=== PATIENT | female | born 1950 | race Caucasian/White ===

== ENCOUNTER 2016-06-12 19:27 | Emergency (ER) | payer OTHER ==
[2016-06-12 19:32] VITALS: BP 150/72; PULSE 100; RESP 16; TEMP 98.4; O2SAT 98
--- NOTE | 2016-06-12 20:36 | C.PDOC ---
History Of Present Illness 65 year old patient presents to the ED complaining of left shoulder and bilateral knee pain after a fall earlier today. Patient states she slipped and fell in a waxed hallway onto her knees and left shoulder. She continued to work , but the pain persisted. Patient denies fever, numbness, weakness, loss of consciousness, or neck pain. Time Seen by Provider: 06/12/16 19:43 Chief Complaint (Nursing): Lower Extremity Problem/Injury History Per: Patient History/Exam Limitations: no limitations Onset/Duration Of Symptoms: Hrs (earlier today) Current Symptoms Are (Timing): Still Present Severity: Mild Pain Scale Rating Of: 3 Recent travel outside of the [place]: No - Knee Description Of Injury: Fell Currently Unable To: Bear Weight, Bend Or Move Past Medical History Reviewed: Historical Data, Nursing Documentation, Vital Signs Vital Signs: Last Vital Signs Temp 98.4 F 06/12/16 19:29 Pulse 100 H 06/12/16 19:29 Resp 16 06/12/16 19:29 BP 150/72 06/12/16 19:29 Pulse Ox 98 06/12/16 21:49 Family History: States: Unknown Family Hx - Social History Hx Alcohol Use: No Hx Substance Use: No - Immunization History Hx Tetanus Toxoid Vaccination: No Hx Influenza Vaccination: No Hx Pneumococcal Vaccination: No Review Of Systems Except As Marked, All Systems Reviewed And Found Negative. Constitutional: Negative for: Fever Musculoskeletal: Positive for: Shoulder Pain (left), Other (both knees). Negative for: Neck Pain Skin: Positive for: Bruising (bilateral knees) Neurological: Negative for: Weakness, Numbness, Other (loss of consciousness) Physical Exam - Physical Exam Appears: Non-toxic, No Acute Distress Skin: Warm, Dry Head: Atraumatic, Normacephalic Eye(s): bilateral: Normal Inspection, EOMI Nose: Normal Oral Mucosa: Moist Neck: Normal ROM, Supple Chest: Symmetrical Respiratory: No Accessory Muscle Use Back: Normal Inspection Extremity: Normal ROM, No Calf Tenderness, Capillary Refill (<2 seconds), No Deformity, Other (ecchymosis and tenderness to the anterior aspect of the knees (-)swelling; tenderness to the lateral aspect of the shoulder (-)ecchymosis; (+) full ROM (+)5/5 strength (+)normal pulses (+)<2 seconds capillary refill) Pulses: Left Dorsalis Pedis: Normal, Right Dorsalis Pedis: Normal Neurological/Psych: Oriented x3, Normal Speech, Normal Cognition, Normal Motor, Normal Sensation Gait: Steady ED Course And Treatment O2 Sat by Pulse Oximetry: 98 (RA) Pulse Ox Interpretation: Normal - Other Rad left shoulder X-Ray: Interpreted by Me, Viewed By Me Interpretation: no fracture or dislocation bilateral knees X-Ray: Interpreted by Me, Viewed By Me Interpretation: no fracture or dislocation Progress Note: Plan: -bilateral knee x-ray. -left shoulder x-ray. -reassess and disposition. X-ray results were reviewed. Patient was offered a knee brace and pain medications, but she refused both. Ton wrap was given. On reassessment , patient is resting comfortably, and is in no acute distress. Patient was instructed to follow up with physician/clinic in 2-5 days for further evaluation. Disposition - Disposition Disposition: HOME/ ROUTINE Disposition Time: 20:34 Condition: STABLE Additional Instructions: Rest, ice and elevate. Follow up with your primary medical doctor or clinic in 2 -5 days for further evaluation. Return to the emergency department at any time if symptoms persist or worsen. Instructions: Contusion in Adults (ED) - Clinical Impression Clinical Impression: Knee contusion, Left shoulder strain - PA / PAD HAND / Resident Statement MD/DO has reviewed & agrees with the documentation as recorded. - Scribe Statement The provider has reviewed the documentation as recorded by the Scribe Aurora Duque All medical record entries made by the Scribe were at my direction and personally dictated by me. I have reviewed the chart and agree that the record accurately reflects my personal performance of the history, physical exam, medical decision making, and the department course for this patient. I have also personally directed, reviewed, and agree with the discharge instructions and disposition.
--- NOTE | 2016-06-13 09:08 | RAD ---
PROCEDURE: Radiographs of the Left Shoulder HISTORY: Trauma COMPARISON: No prior. FINDINGS: BONES: There is diffuse bone demineralization. There is no acute fracture or bone destruction JOINTS: Normal. Glenohumeral and acromioclavicular joints preserved. No osteoarthritis. SOFT TISSUES: Normal. OTHER FINDINGS: None. IMPRESSION: No acute fracture or dislocation.
--- NOTE | 2016-06-13 09:10 | RAD ---
PROCEDURE: Bilateral Knee Radiographs. HISTORY: Trauma COMPARISON: None. FINDINGS: BONES: Right Knee: Normal. No fracture. Left Knee: Normal. No fracture. JOINTS: Right Knee: Normal. No osteoarthritis. Left knee: Normal. No osteoarthritis. SOFT TISSUES: Right Knee: Normal. Left Knee: Normal. JOINT EFFUSION: Right Knee: None. Left Knee: None. OTHER FINDINGS: None. IMPRESSION: No acute fracture or dislocation.
== END 2016-06-12 20:48 | disposition home or self-care (01) ==
LOC: C.ER 19:27
DX: S46.912A Strain of unspecified muscle, fascia and tendon at shoulder and upper arm level, left arm, initial encounter (principal); S80.02XA Contusion of left knee, initial encounter; S80.01XA Contusion of right knee, initial encounter; W01.0XXA Fall on same level from slipping, tripping and stumbling without subsequent striking against object, initial encounter

== ENCOUNTER 2017-02-20 23:29 | Emergency (ER) | payer OTHER ==
[2017-02-20 23:34] VITALS: RESP 16; TEMP 97.6
[2017-02-20 23:46] LABS: SQUAMOUS EPITHIAL < 1 /hpf (0-5); URINE BACTERIA OCC (<OCC); URINE BILIRUBIN NEGATIVE (NEGATIVE); URINE BLOOD 3+ (NEGATIVE); URINE CLARITY Clear (Clear); URINE COLOR Red (YELLOW); URINE GLUCOSE (UA) NORMAL (Normal); URINE LEUKOCYTE ESTERASE 2+ Leu/uL (Negative); URINE NITRATE NEGATIVE (NEGATIVE); URINE PROTEIN 1+ mg/dL (NEGATIVE); URINE UROBILINOGEN NORMAL mg/dL (0.2-1.0)
--- NOTE | 2017-02-20 23:47 | C.PDOC ---
History Of Present Illness 66 y/o F p/w dysuria, increased urinary frequency and urgency, and hematuria x 1 day. States feels similar to previous UTIs in the past. Denies fever, vomiting , abdominal pain, flank pain, dyspnea. Time Seen by Provider: 02/20/17 23:37 Chief Complaint (Nursing): Female Genitourinary Past Medical History Vital Signs: Last Vital Signs Temp 97.6 F 02/20/17 23:33 Pulse 114 H 02/20/17 23:33 Resp 16 02/20/17 23:33 BP 196/96 H 02/20/17 23:33 Pulse Ox 98 02/20/17 23:33 Family History: States: Unknown Family Hx - Social History Hx Alcohol Use: No Hx Substance Use: No - Immunization History Hx Tetanus Toxoid Vaccination: No Hx Influenza Vaccination: No Hx Pneumococcal Vaccination: No Review Of Systems Except As Marked, All Systems Reviewed And Found Negative. Constitutional: Negative for: Fever Respiratory: Negative for: Shortness of Breath Physical Exam - Physical Exam Additional Physical Exam Comments: Gen: Well appearing female, nontoxic Head: NC Eyes: No icterus ENT: MMM Abd: Soft, nontender, nondistended Back: No CVA tenderness CV: Radial pulses 2+ Skin: No rash Neuro: Alert, no focal deficit ED Course And Treatment O2 Sat by Pulse Oximetry: 98 Medical Decision Making Medical Decision Making: Urine culture sent. Start Macrobid and Pyridium. F/u Dr. Kebede, return to ED for worsening pain, fever, dyspnea, back pain, vomiting. Disposition - Disposition Referrals: Yo Kebede MD [Primary Care Provider] - Disposition: HOME/ ROUTINE Disposition Time: 23:49 Condition: STABLE Prescriptions: Nitrofurantoin Macrocrystals [Macrobid] 100 mg PO BID #14 cap Phenazopyridine [Pyridium] 1 tab PO Q8 #5 tab Instructions: Urinary Tract Infection in Women (ED) - Clinical Impression Clinical Impression: Dysuria
[2017-02-20 23:57] VITALS: BP 173/91; PULSE 86; O2SAT 97
== END 2017-02-20 23:58 | disposition home or self-care (01) ==
LOC: SUPCPDRO 23:29 → C.ER 23:29
DX: R30.0 Dysuria (principal)

== ENCOUNTER 2017-10-03 14:25 | Emergency (ER) | payer OTHER ==
[2017-10-03 14:31] VITALS: BP 138/79; PULSE 98; RESP 16; TEMP 98.4; O2SAT 98
[2017-10-03] MEDS ORDERED: Tdap Vaccine 0.5 ml Vial (10-64 yrs) IM ONE ×2 (14:40→14:45)
--- NOTE | 2017-10-03 14:43 | C.PDOC ---
History Of Present Illness 66 y/o female presents to the ED for medical clearance. 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 The source patient has a history of UTI with cultures showing pseudomonas aeruginosa and klebsiella pneumoniae in the urine. Patient is concerned about possible exposure, although there was no urine exposure in this incident. Patient has no other injuries. Tetanus is not up to date. Time Seen by Provider: 10/03/17 14:28 Chief Complaint (Nursing): Abnormal Skin Integrity History Per: Patient History/Exam Limitations: no limitations Onset/Duration Of Symptoms: Mins Current Symptoms Are (Timing): Still Present Past Medical History Reviewed: Historical Data, Nursing Documentation, Vital Signs Vital Signs: Last Vital Signs Temp 98.4 F 10/03/17 14:28 Pulse 98 H 10/03/17 14:28 Resp 16 10/03/17 14:28 BP 138/79 10/03/17 14:28 Pulse Ox 98 10/03/17 14:42 Other Surgeries: Surgical breast biopsy Family History: States: Unknown Family Hx - Social History Hx Tobacco Use: No Hx Alcohol Use: No Hx Substance Use: No - Immunization History Hx Tetanus Toxoid Vaccination: No Hx Influenza Vaccination: No Hx Pneumococcal Vaccination: No Review Of Systems Except As Marked, All Systems Reviewed And Found Negative. Respiratory: Negative for: Shortness of Breath Gastrointestinal: Negative for: Vomiting Skin: Positive for: Lesions (superficial scratches to left arm). Negative for: Rash, Bruising Physical Exam - Physical Exam Appears: Non-toxic, No Acute Distress Skin: Warm, Dry, Other (linear scratches to the left upper arm, red raised lesions, no active bleeding) Head: Atraumatic, Normacephalic Eye(s): bilateral: Normal Inspection, PERRL, EOMI Oral Mucosa: Moist Neck: Normal ROM, Supple Chest: Symmetrical Cardiovascular: Rhythm Regular, No Murmur Respiratory: Normal Breath Sounds, No Accessory Muscle Use Extremity: Bilateral: Normal Color And Temperature, Normal ROM Pulses: Left Radial: Normal, Right Radial: Normal Neurological/Psych: Oriented x3, Normal Speech, Normal Cranial Nerves Gait: Steady ED Course And Treatment O2 Sat by Pulse Oximetry: 98 (RA) Pulse Ox Interpretation: Normal Medical Decision Making Medical Decision Making: Impression: Superficial scratches Initial Plan: --Tetanus booster Reassured patient that the likelihood of exposure is low, as no urine was present in the incident. Tetanus is now up to date. Patient is stable for discharge home. Advised to follow up with employee health as needed. Disposition Counseled Patient/Family Regarding: Diagnosis, Need For Followup - Disposition Disposition: HOME/ ROUTINE Disposition Time: 14:41 Condition: STABLE Additional Instructions: Follow up with Employee Health as needed. Forms: [facility] (Spanish), General Discharge Instructions - POA Present On Arrival: None - Clinical Impression Clinical Impression: Scratches - Scribe Statement The provider has reviewed the documentation as recorded by the Melvi Roland Provider Attestation: All medical record entries made by the Melvi were at my direction and personally dictated by me. I have reviewed the chart and agree that the record accurately reflects my personal performance of the history, physical exam, medical decision making, and the department course for this patient. I have also personally directed, reviewed, and agree with the discharge instructions and disposition.
== END 2017-10-03 15:01 | disposition home or self-care (01) ==
LOC: C.ER 14:25
DX: S49.92XA Unspecified injury of left shoulder and upper arm, initial encounter (principal); Y04.0XXA Assault by unarmed brawl or fight, initial encounter; Y92.239 Unspecified place in hospital as the place of occurrence of the external cause; Z99.2 Dependence on renal dialysis; Z23 Encounter for immunization

== ENCOUNTER 2018-07-04 13:48 | Emergency (ER) | payer OTHER ==
--- NOTE | 2018-07-04 14:10 | C.PDOC ---
History Of Present Illness 67-year-old female, who is a [employer] employee, presents to the ED for evaluation after sustaining a fall prior to arrival. Patient states she accidentally tripped over a cement block outside and fell onto her knees. Patient reached her arms out to brace her fall. Patient admits she hit her cheek and has an abrasion to her right palm. Otherwise, she denies LOC, nausea, vomiting, extremity numbness/weakness. - HPI Time Seen by Provider: 07/04/18 13:55 Chief Complaint (Nursing): Trauma History Per: Patient History/Exam Limitations: no limitations Onset/Duration Of Symptoms: Hrs Additional History Per: Patient - Fall Fall:Prior To Injury: Tripped Past Medical History Reviewed: Historical Data, Nursing Documentation, Vital Signs Vital Signs: Last Vital Signs Temp 97.9 F 07/04/18 13:53 Pulse Resp 83 H 07/04/18 13:53 BP 126/70 07/04/18 13:53 Pulse Ox 97 07/04/18 13:53 Primary Care Provider: Harvey Conroy - Medical History PMH: No Chronic Diseases Surgical History: No Surg Hx Family History: States: Unknown Family Hx - Social History Hx Tobacco Use: No Hx Alcohol Use: No Hx Substance Use: No - Immunization History Hx Tetanus Toxoid Vaccination: Yes Hx Influenza Vaccination: No Hx Pneumococcal Vaccination: No Review Of Systems Skin: Positive for: Other (right cheek injury ) Neurological: Negative for: Other (LOC ) Physical Exam - Physical Exam Appears: Non-toxic, No Acute Distress Skin: Normal Color, Warm, Dry Head: Atraumatic, Normacephalic Oral Mucosa: Moist Neck: Supple Chest: Symmetrical, No Deformity, No Tenderness Cardiovascular: Rhythm Regular, No Murmur Respiratory: Normal Breath Sounds, No Rales, No Rhonchi, No Wheezing Extremity: Normal ROM (left knee ), Tenderness (left knee ), Capillary Refill (less than 2 seconds ), No Deformity, No Swelling, Other (abrasions to right palm and left knee. no active bleeding) Pulses: Left Dorsalis Pedis: Normal, Right Dorsalis Pedis: Normal Neurological/Psych: Oriented x3, Normal Speech, Normal Cognition ED Course And Treatment O2 Sat by Pulse Oximetry: 97 (on RA ) Pulse Ox Interpretation: Normal - Other Rad knee XR X-Ray: Viewed By Me, Read By Radiologist Interpretation: Date of service: 07/04/2018. PROCEDURE: Left Knee Radiographs. HISTORY: Pain. COMPARISON: Bilateral knees radiographs 06/12/2016. TECHNIQUE: 2 views obtained. FINDINGS: BONES: No acute fracture or destructive bony lesion identified. JOINTS: No subluxation or dislocation. Minimal medial femorotibial compartment joint space narrowing again evident compatible degenerative joint disease. JOINT EFFUSION: None. OTHER FINDINGS: None. IMPRESSION: No acute fracture or dislocation left knee. 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 right hand XR X-Ray: Viewed By Me, Read By Radiologist Interpretation: PROCEDURE: Right Hand Radiographs. HISTORY: trauma. COMPARISON: None. TECHNIQUE: 3 views obtained. FINDINGS: BONES: No acute fracture or destructive bony lesion identified. JOINTS: No subluxation or dislocation. SOFT TISSUES: Normal. OTHER FINDINGS: None. IMPRESSION: No acute fracture or dislocation right hand. Progress Note: Right hand XR and Right knee XR ordered and reviewed. Results are unremarkable. Motrin PO given. Patient left the ED without receiving her discharge paperwork. 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 - Scribe Statement The provider has reviewed the documentation as recorded by the Scribe (Fatimah Duque) All medical record entries made by the Scribe were at my direction and perso cody dictated by me. I have reviewed the chart and agree that the record accurately reflects my personal performance of the history, physical exam, medical decision making, and the department course for this patient. I have also personally directed, reviewed, and agree with the discharge instructions and disposition.
[2018-07-04 14:49] VITALS: BP 159/89; PULSE 93; RESP 16; TEMP 98.5
--- NOTE | 2018-07-04 14:59 | RAD ---
PROCEDURE: Right Hand Radiographs. HISTORY: trauma COMPARISON: None. TECHNIQUE: 3 views obtained. FINDINGS: BONES: No acute fracture or destructive bony lesion identified. JOINTS: No subluxation or dislocation SOFT TISSUES: Normal. OTHER FINDINGS: None. IMPRESSION: No acute fracture or dislocation right hand.
--- NOTE | 2018-07-04 15:01 | RAD ---
Date of service: 07/04/2018 PROCEDURE: Left Knee Radiographs. HISTORY: Pain. COMPARISON: Bilateral knees radiographs 06/12/2016. TECHNIQUE: 2 views obtained. FINDINGS: BONES: No acute fracture or destructive bony lesion identified. JOINTS: No subluxation or dislocation. Minimal medial femorotibial compartment joint space narrowing again evident compatible degenerative joint disease. JOINT EFFUSION: None. OTHER FINDINGS: None. IMPRESSION: No acute fracture or dislocation left knee. 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
[2018-07-04 16:43] VITALS: O2SAT 97
== END 2018-07-04 14:46 | disposition home or self-care (01) ==
LOC: C.ER 13:48
DX: T14.8XXA Other injury of unspecified body region, initial encounter (principal); W01.0XXA Fall on same level from slipping, tripping and stumbling without subsequent striking against object, initial encounter